=== PATIENT | female | born 1945 | race Caucasian/White ===

== ENCOUNTER 2016-08-07 13:29 | Inpatient (IN) | payer OTHER ==
[~2016-08-07] VITALS: Ht 160 cm; Wt 73.0 kg
[~2016-08-07 13:29] MED LIST: ASPCH81X PO; TIMO1SOL6 OPR
[2016-08-07] MEDS ORDERED: ALBUT/IPRATROP 3MG/0.5MG NEB 3 ML VIAL INH STA (14:29)
[2016-08-07 14:55] LABS: BASO % 0.1 %; BASO ABS # 0.01 K/uL (0-0.2); COMPLETE YES; HEMATOCRIT 42.1 % (37-47); IG% 0.5 %; LYMPH % 7.5 %; LYMPH ABS # 1.13 K/uL (1.2-3.4); MEAN CELL VOLUME 92.9 fL (80-100); MEAN CORPUSCULAR HEMOGLOBIN 31.1 pg (25-34); MEAN CORPUSCULAR HGB CONC 33.5 g/dl (32-36); MEAN PLATELET VOLUME 8.7 fL (7.4-10.4); MONO % 1.4 %; NEUT % 90.5 %; PLATELET COUNT 294 K/uL (130-400); RED BLOOD COUNT 4.53 M/uL (4.2-5.4); WHITE BLOOD COUNT 15.05 K/uL (4.8-10.8)
--- NOTE | 2016-08-07 15:02 | DIAGNOSTIC IMAGING REPORT ---
CHEST ONE VIEW PORTABLE CLINICAL HISTORY: Wheezing, shortness of breath, pneumonia. COMPARISON STUDY: 09/02/2012 FINDINGS: The cardiac and mediastinal contours are normal. There is no evidence of focal pulmonary consolidation. There is no evidence of failure. No pleural effusions are visualized.[ There is minor left basilar atelectasis. IMPRESSION: No active disease in the chest. Electronically signed by: Adrian Johnson M.D. 08/07/2016 3:00 PM Dictated Date/Time: 08/07/2016 3:00 PM
[2016-08-07 15:13] LABS: ALT/SGPT 39 U/L (12-78); BLOOD UREA NITROGEN 21 mg/dl (7-18); BUN/CREATININE RATIO 17.8 (10-20); CALCIUM 9.4 mg/dl (8.5-10.1); CARBON DIOXIDE 24 mmol/L (21-32); CHLORIDE 106 mmol/L (98-107); GLUCOSE 140 mg/dl (70-99); POTASSIUM 3.9 mmol/L (3.5-5.1); SODIUM 142 mmol/L (136-145)
[2016-08-07 15:18] LABS: ALB/GLOB RATIO 0.8 (0.9-2); ALKALINE PHOSPHATASE 40 U/L (45-117); AST/SGOT 18 U/L (15-37)
[2016-08-07 15:24] LABS: PARTIAL THROMBOPLASTIN RATIO 0.9; PROTHROMBIN TIME (PATIENT) 10.6 SECONDS (9.0-12.0)
[2016-08-07] MEDS ORDERED: PRVIN525 PO (15:24)
[2016-08-07] MEDS ORDERED: DOXY-300 PO (15:24)
[2016-08-07] MEDS ORDERED: NLV/20 PO (15:24)
[2016-08-07] MEDS ORDERED: CEPH500C PO (15:24)
[2016-08-07] MEDS ORDERED: PRED20TA2 PO (15:24)
[2016-08-07 15:28] LABS: URINE APPEARANCE CLEAR (CLEAR); URINE BILIRUBIN NEG (NEG); URINE COLOR YELLOW; URINE NITRITE NEG (NEG); URINE SPECIFIC GRAVITY 1.006 (1.000-1.030); UROBILINOGEN NEG (NEG)
[2016-08-07] MEDS ORDERED: OPTIRAY 320 IV PRN (15:30)
[2016-08-07 15:42] LABS: MANUAL MICROSCOPIC REQUIRED? NO; REVIEW REQ? NO
[2016-08-07] MEDS ORDERED: SODIUM CHLORIDE 0.9% 1000ML 1,000 ML IV STA (15:52)
--- NOTE | 2016-08-07 16:22 | DIAGNOSTIC IMAGING REPORT ---
CT ANGIOGRAM OF THE CHEST CLINICAL HISTORY: Left-sided chest pain. Dyspnea. COMPARISON STUDY: Chest x-ray dated 08/07/2016. TECHNIQUE: Following the IV administration of 90 cc of Optiray 320, CT angiogram of the chest was performed from the upper abdomen to the thoracic inlet utilizing the pulmonary embolus protocol. Images are reviewed in the axial, sagittal, and coronal planes. 3-D MIPS images are created and assessed. IV contrast was administered without complication. CT DOSE: 427.66 mGycm FINDINGS: Thyroid: Imaged portions of the thyroid gland are normal in size and attenuation. An 11 mm low-attenuation nodule is noted in the right lobe. Thoracic aorta: The thoracic aorta is normal in caliber and demonstrates standard 3-vessel arch anatomy. No dissection is seen. Pulmonary vasculature: The pulmonary trunk is normal in caliber. There is trace pulmonary embolus seen within segmental and subsegmental branches in the left upper lobe on images #152 and #144. The remaining pulmonary vessels are patent. Heart: The heart is normal in size and configuration, and without pericardial effusion. Lungs and pleural spaces: Evaluation of the lung parenchyma is degraded by expiratory motion artifact. There is a small left pleural effusion with patchy airspace consolidation at the left lung base. Mild patchy airspace opacities with tree-in-bud nodularity are seen in the right upper lobe. Linear atelectasis versus scarring is seen in the right middle lobe and lingula. The trachea and central airways are clear. Mediastinum: There is no mediastinal lymphadenopathy. Shae: Clear. Axillae: There is no axillary lymphadenopathy. Upper abdomen: Cholecystectomy clips are noted. There is a small hiatal hernia. Skeletal structures: The skeletal structures are osteopenic. Mild degenerative change is noted throughout the thoracic spine. No lytic or blastic bony lesions are seen. IMPRESSION: 1. There is trace and age indeterminant pulmonary embolus identified within segmental and subsegmental branches of the left upper lobe pulmonary artery. The remaining pulmonary vessels are clear. 2. There is a small left pleural effusion with patchy airspace consolidation at the left lung base. Mild patchy consolidative change is also seen in the right upper lobe. The appearance suggests pneumonia. Clinical correlation will be required. 3. There is an 11 mm low-attenuation nodule in the right lobe of the thyroid gland. Nonemergent thyroid ultrasound is recommended in follow-up. 4. Additional findings as above. Electronically signed by: King Mendenhall M.D. 08/07/2016 4:21 PM Dictated Date/Time: 08/07/2016 4:09 PM
[2016-08-07] MEDS ORDERED: LEVOFLOXACIN 250 MG TAB PO STA (17:01)
--- NOTE | 2016-08-07 18:02 | DIAGNOSTIC IMAGING REPORT ---
BILATERAL LOWER EXTREMITY VENOUS DOPPLER HISTORY: Chest pain. Pain. Edema. PE, lower extremity eval COMPARISON STUDY: None. FINDINGS: Evaluation of the right leg is normal. Left leg shows a stably positive for acute deep venous thrombosis in the mid to post mid to distal popliteal vein. All remaining venous structures are unremarkable. IMPRESSION: Acute deep venous thrombosis left leg involving the popliteal vein. All remaining components of the study are unremarkable. Electronically signed by: Zaheer Cook M.D. 08/07/2016 6:01 PM Dictated Date/Time: 08/07/2016 5:59 PM
[2016-08-07] MEDS ORDERED: ACETAMINOPHEN 325 MG TAB PO PRN (19:30)
--- NOTE | 2016-08-07 20:27 | History and Physical ---
History & Physical Date & Time of Service: Aug 07, 2016 at 20:27 . Chief Complaint: cough, chest pain . Primary Care Physician: Sharon Morgan M.D. (MEDICAL) . History of Present Illness Source: patient, clinic records, hospital records 71 YO female followed by Dr. Morgan for Family Medicine. Followed by Dr. Manish Rodriguez for Hematology / Oncology. Retired respiratory therapist. History of breast Ca, on tamoxifen. Developed fever, chills, cough about 2 weeks ago. Seen in clinic on 08/01. Chest x-ray showed possible RML infiltrate. Treated with doxycycline and prednisone taper. Persistent cough. Seen in clinic for f/u 08/06 and prescribed cephalexin. Using nebs at home without much benefit. Presented to ED today with severe left sided pleuritic chest pain. Cough improved, now nonproductive. No hemoptysis. Dyspneic. Fever has resolved. Had sclerotherapy of lower extremities for varicose veins about 2 weeks ago. . Past Medical/Surgical History Chronic and Resolved Medical Problems: (1) CKD (chronic kidney disease), stage III Status: Chronic (2) History of breast cancer Permanent Comment: DCIS left breast, treated with tamoxifen Status: Chronic Surgical Problems: (1) S/P total hysterectomy Status: Resolved (2) Status post breast biopsy Permanent Comment: DCIS left breast 2014 Status: Chronic (3) Status post cataract extraction Status: Chronic (4) Status post cholecystectomy Status: Chronic (5) Status post hysterectomy Status: Chronic . Family History FATHER Heart disease MOTHER Pancreatic cancer Breast cancer Social History Smoking Status: Never Smoker Alcohol Use: occasionally Drug Use: none Marital Status: Immunizations History of Influenza Vaccine: No History of Tetanus Vaccine?: Yes History of Pneumococcal: No History of Hepatitis B Vaccine: Yes Multi-Drug Resistant Organisms History of MDRO: No Allergies Coded Allergies: Tramadol (Unverified Allergy, Unknown, UPSET STOMACH/ NAUSEA, 08/07/16) Hydrocodone (Verified Adverse Reaction, Intermediate, SLURRING OF SPEECH, TINGLING ALL OVER, 08/07/16) Home Medications Scheduled Cephalexin Monohydrate (Keflex), 500 MG PO TID Prednisone (Prednisone Tab), 20 MG PO DIRECTED Tamoxifen Citrate (Tamoxifen Citrate), 20 MG PO DAILY Timolol Hemihydrate 0.25% Oph (Betimol 0.25% Oph), 1 DROP OPR DAILY Scheduled PRN Albuterol Sulf (Albuterol Sulfate), 0.5 ML PO Q4 PRN for Shortness of Breath Review of Systems Constitutional: + chills, + fever, + sweats Eyes: No diplopia, No worsening of vision ENT: No hearing loss, No nasal symptoms, No sore throat Respiratory: + problem reported (as noted in HPI) Cardiovascular: No chest pain, No edema, No palpitations Abdomen: + diarrhea (at onset of illness, now resolved), + nausea (at onset of illness, now resolved), + vomiting (at onset of illness, now resolved), No GI bleeding Genitourinary - Female: No dysuria, No hematuria Neurologic: No weakness Endocrine: No excessive thirst, No excessive urination Hematologic / Lymphatic: No abnormal bleeding/bruising, No swollen lymph nodes Integumentary: No new/changing skin lesions, No rash Physical Exam Vital Signs Date Time Temp Pulse Resp B/P Pulse Ox O2 Delivery O2 Flow Rate FiO2 08/07/16 19:29 89 08/07/16 17:58 73 19 155/89 97 Room Air 08/07/16 16:57 74 18 141/85 95 Room Air 08/07/16 15:49 83 18 95 Room Air 08/07/16 15:18 74 08/07/16 14:59 94 Room Air 08/07/16 14:59 94 Room Air 08/07/16 13:38 36.9 94 18 155/81 94 Room Air General Appearance: WD/WN, no apparent distress Head: normocephalic, atraumatic Eyes: normal inspection, PERRL, EOMI, sclerae normal ENT: normal ENT inspection, hearing grossly normal, pharynx normal Neck: supple, no adenopathy, thyroid normal, no JVD, trachea midline Respiratory/Chest: no respiratory distress, + crackles (left base), + wheezing (mild) Cardiovascular: regular rate, rhythm, no gallop, no JVD, no murmur, normal peripheral pulses, + pertinent finding (trace edema LLE) Abdomen/GI: normal bowel sounds, non tender, soft, no organomegaly, no pulsatile mass Extremities/Musculoskelatal: normal inspection, no calf tenderness, normal capillary refill, no pedal edema 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 (PERRL, EOMI, no dysarthria, no facial palsy), no motor/sensory deficits, alert, oriented x 3 Skin: normal color, warm/dry, no rash Lymphatic: no adenopathy Diagnostics Laboratory Results Results Past 24 Hours Test 08/07/16 14:35 08/07/16 14:41 Range/Units White Blood Count 15.05 4.8-10.8 K/uL Red Blood Count 4.53 4.2-5.4 M/uL Hemoglobin 14.1 12.0-16.0 g/dL Hematocrit 42.1 37-47 % Mean Corpuscular Volume 92.9 80-100 fL Mean Corpuscular Hemoglobin 31.1 25-34 pg Mean Corpuscular Hemoglobin Concent 33.5 32-36 g/dl Platelet Count 294 130-400 K/uL Mean Platelet Volume 8.7 7.4-10.4 fL Neutrophils (%) (Auto) 90.5 % Lymphocytes (%) (Auto) 7.5 % Monocytes (%) (Auto) 1.4 % Eosinophils (%) (Auto) 0.0 % Basophils (%) (Auto) 0.1 % Neutrophils # (Auto) 13.62 1.4-6.5 K/uL Lymphocytes # (Auto) 1.13 1.2-3.4 K/uL Monocytes # (Auto) 0.21 0.11-0.59 K/uL Eosinophils # (Auto) 0.00 0-0.5 K/uL Basophils # (Auto) 0.01 0-0.2 K/uL RDW Standard Deviation 44.0 36.4-46.3 fL RDW Coefficient of Variation 12.8 11.5-14.5 % Immature Granulocyte % (Auto) 0.5 % Immature Granulocyte # (Auto) 0.08 0.00-0.02 K/uL Prothrombin Time 10.6 9.0-12.0 SECONDS Prothromb Time International Ratio 1.0 0.9-1.1 Activated Partial Thromboplast Time 22.4 21.0-31.0 SECONDS Partial Thromboplastin Ratio 0.9 Urine Color YELLOW Urine Appearance CLEAR CLEAR Urine pH 6.0 4.5-7.5 Urine Specific [place] 1.006 1.000-1.030 Urine Protein NEG NEG Urine Glucose (UA) NEG NEG Urine Ketones NEG NEG Urine Occult Blood TRACE NEG Urine Nitrite NEG NEG Urine Bilirubin NEG NEG Urine Urobilinogen NEG NEG Urine Leukocyte Esterase NEG NEG Urine WBC (Auto) 0 0-5 /hpf Urine RBC (Auto) 0-4 0-4 /hpf Urine Hyaline Casts (Auto) 0 0-5 /lpf Urine Epithelial Cells (Auto) 5-10 0-5 /lpf Urine Bacteria (Auto) NEG NEG Sodium Level 142 136-145 mmol/L Potassium Level 3.9 3.5-5.1 mmol/L Chloride Level 106 98-107 mmol/L Carbon Dioxide Level 24 21-32 mmol/L Anion Gap 12.0 3-11 mmol/L Blood Urea Nitrogen 21 7-18 mg/dl Creatinine 1.20 0.60-1.20 mg/dl Est Creatinine Clear Calc Drug Dose 42.3 ml/min Estimated GFR () 53.4 Estimated GFR (Non- 46.1 BUN/Creatinine Ratio 17.8 10-20 Random Glucose 140 70-99 mg/dl Calcium Level 9.4 8.5-10.1 mg/dl Total Bilirubin 0.3 0.2-1 mg/dl Aspartate Amino Transf (AST/SGOT) 18 15-37 U/L Alanine Aminotransferase (ALT/SGPT) 39 12-78 U/L Alkaline Phosphatase 40 45-117 U/L Troponin I < 0.015 0-0.045 ng/ml Pro-B-Type Natriuretic Peptide 119 0-900 pg/ml Total Protein 8.2 6.4-8.2 gm/dl Albumin 3.7 3.4-5.0 gm/dl Globulin 4.5 2.5-4.0 gm/dl Albumin/Globulin Ratio 0.8 0.9-2 Bedside D-Dimer > 450 0-450 ng/mlFEU Diagnostic Radiology CHEST ONE VIEW PORTABLE FINDINGS: The cardiac and mediastinal contours are normal. There is no evidence of focal pulmonary consolidation. There is no evidence of failure. No pleural effusions are visualized.[ There is minor left basilar atelectasis. IMPRESSION: No active disease in the chest. Electronically signed by: Adrian Johnson M.D. 08/07/2016 3:[address] ANGIOGRAM OF THE CHEST FINDINGS: Thyroid: Imaged portions of the thyroid gland are normal in size and attenuation. An 11 mm low-attenuation nodule is noted in the right lobe. Thoracic aorta: The thoracic aorta is normal in caliber and demonstrates standard 3-vessel arch anatomy. No dissection is seen. Pulmonary vasculature: The pulmonary trunk is normal in caliber. There is trace pulmonary embolus seen within segmental and subsegmental branches in the left upper lobe on images #152 and #144. The remaining pulmonary vessels are patent. Heart: The heart is normal in size and configuration, and without pericardial effusion. Lungs and pleural spaces: Evaluation of the lung parenchyma is degraded by expiratory motion artifact. There is a small left pleural effusion with patchy airspace consolidation at the left lung base. Mild patchy airspace opacities with tree-in-bud nodularity are seen in the right upper lobe. Linear atelectasis versus scarring is seen in the right middle lobe and lingula. The trachea and central airways are clear. Mediastinum: There is no mediastinal lymphadenopathy. Shae: Clear. Axillae: There is no axillary lymphadenopathy. Upper abdomen: Cholecystectomy clips are noted. There is a small hiatal hernia. Skeletal structures: The skeletal structures are osteopenic. Mild degenerative change is noted throughout the thoracic spine. No lytic or blastic bony lesions are seen. IMPRESSION: 1. There is trace and age indeterminant pulmonary embolus identified within segmental and subsegmental branches of the left upper lobe pulmonary artery. The remaining pulmonary vessels are clear. 2. There is a small left pleural effusion with patchy airspace consolidation at the left lung base. Mild patchy consolidative change is also seen in the right upper lobe. The appearance suggests pneumonia. Clinical correlation will be required. 3. There is an 11 mm low-attenuation nodule in the right lobe of the thyroid gland. Nonemergent thyroid ultrasound is recommended in follow-up. 4. Additional findings as above. Electronically signed by: King Mendenhall M.D. 08/07/2016 4:21 PM BILATERAL LOWER EXTREMITY VENOUS DOPPLER IMPRESSION: Acute deep venous thrombosis left leg involving the popliteal vein. All remaining components of the study are unremarkable. Electronically signed by: Zaheer Cook M.D. 08/07/2016 6:01 PM . EKG EKG performed at 14:26 reviewed and demonstrated NSR at 85 / minute, no acute ST or T-wave changes. . Impression Assessment and Plan PULMONARY EMBOLISM / DVT CTA demonstrated segmental and subsegmental pulmonary emboli. Oxygenation and hemodynamics stable. Venous duplex lower extremities demonstrated left popliteal DVT. Contributing factors: tamoxifen therapy, recent sclerotherapy lower extremities , recent pneumonia. Start enoxaparin 1 mg / kg q 12 hrs. Transition to oral therapy after more discussion and review of benefits. Patient prefers not to take warfarin. Hold tamoxifen pending discussion with Hematology / Oncology. Duration of treatment to be determined. PNEUMONIA CT demonstrates infiltrates LLL and RUL. Has taken doxycycline and cephalexin as outpatient. Change Rx to levofloxacin. THYROID NODULE 11 mm right thyroid nodule noted on CT chest. Outpatient US recommended. Patient aware. BREAST CA Management per Heme / Onc. VTE PROPHYLAXIS Full-dose enoxaparin as discussed above. RESUSCITATION STATUS Discussed with patient. She has a living will. She would like resuscitation attempted in the event of a cardiopulmonary arrest if there is a reasonable chance of a meaningful recovery, but does not want prolonged extraordinary measures if prognosis is poor. Therefore, code status = "Level 1" (full resuscitation). DISPOSITION Hemodynamically stable. Admit to Med-Surg Unit. Expected discharge to home. Family Medicine follow-up with Dr. Morgan. Hematology / Oncology follow-up with Dr. Manish Rodriguez. . VTE Prophylaxis VTE Risk Assessment Done? Y/N: Yes Risk Level: High Given or contraindicated: Enoxaparin (Lovenox)SQ Additional Copies To Sharon Morgan M.D. (MEDICAL); Manish Rodriguez M.D.
[2016-08-07] MEDS ORDERED: GUAIFENESIN SUGAR FREE 100 MG/5 ML UDC PO PRN (20:30)
[2016-08-07] MEDS ORDERED: ENOXAPARIN 80 MG/0.8 ML SYR SQ SCH (21:00)
--- NOTE | 2016-08-07 21:07 | EMERGENCY ROOM VISIT NOTE ---
History Report prepared by [place]: Kia Corbett Under the Supervision of: Dr. Guillermo Mccormack D.O. First contact with patient: 14:19 Chief Complaint: SHORTNESS OF BREATH Stated Complaint: WHEEZING, SOB, PNEMONIA Nursing Triage Summary: pt here with increased sob, pt states recent dx of pneumonia from dr del cid pt on abx History of Present Illness The patient is a 71 year old female who presents to the Emergency Room with complaints of persistent shortness of breath starting 2 weeks ago. She saw a doctor 1 week ago who gave her doxycycline and prednisone for pneumonia. She has been doing nebulizer treatments also. She expected to get better, but has not experienced any improvements. She is wheezing and has a cough producing green sputum. She was given another antibiotic by her doctor yesterday and was told to present to the ED if she did not experience any improvement. She was told she might have community based pneumonia. She denies any history of blood clots or [place]. She has been on Tamoxifen for 2 years to prevent breast cancer. Source of History: patient Onset: 2 weeks ago Position: other (global) Quality: other (SOB) Timing: other (persistent) Associated Symptoms: + cough Note: Pt reports wheezing. Review of Systems See HPI for pertinent positives & negatives. A total of 10 systems reviewed and were otherwise negative. Past Medical & Surgical Surgical Problems: (1) S/P total hysterectomy Family History FH: breast cancer Social History Smoking Status: Never Smoker Alcohol Use: occasionally Drug Use: none Marital Status: Housing Status: lives with family Occupation Status: employed Current/Historical Medications Scheduled Cephalexin Monohydrate (Keflex), 500 MG PO TID Doxycycline (Monohydrate) (Doxycycline), 100 MG PO BID Prednisone (Prednisone Tab), 20 MG PO DIRECTED Tamoxifen Citrate (Tamoxifen Citrate), 20 MG PO DAILY Timolol Hemihydrate 0.25% Oph (Betimol 0.25% Oph), 1 DROP OPR DAILY Scheduled PRN Albuterol Sulf (Albuterol Sulfate), 0.5 ML PO Q4 PRN for Shortness of Breath Allergies Coded Allergies: Tramadol (Unverified Allergy, Unknown, UPSET STOMACH/ NAUSEA, 08/07/16) Hydrocodone (Verified Adverse Reaction, Intermediate, SLURRING OF SPEECH, TINGLING ALL OVER, 08/07/16) Physical Exam Vital Signs Date Time Temp Pulse Resp B/P Pulse Ox O2 Delivery O2 Flow Rate FiO2 08/07/16 19:29 89 08/07/16 17:58 73 19 155/89 97 Room Air 08/07/16 16:57 74 18 141/85 95 Room Air 08/07/16 15:49 83 18 95 Room Air 08/07/16 15:18 74 08/07/16 14:59 94 Room Air 08/07/16 14:59 94 Room Air 08/07/16 13:38 36.9 94 18 155/81 94 Room Air Physical Exam GENERAL: Patient is awake, alert, and in no acute distress. Patient is resting comfortably and showing no signs of anxiety EYES: The conjunctivae are clear. The pupils are round and reactive. EARS, NOSE, MOUTH AND THROAT: The nose is without any evidence of any deformity. Mucous membranes are moist tongue is midline NECK: The neck is nontender and supple. RESPIRATORY: Lung sounds diminished throughout. Expiratory wheezing in all lung meeks. No tachypnea or conversational dyspnea noted. CARDIOVASCULAR: Regular rate and rhythm noted there no murmurs rubs or gallops normal S1 normal S2 GASTROINTESTINAL: The abdomen is soft. Bowel sounds are present in all quadrants. Abdomen is nontender MUSCULOSKELETAL/EXTREMITIES: There is no evidence of gross deformity full range of motion is noted in the hips and shoulders SKIN: There is no obvious evidence of any rash. There are no petechiae, pallor or cyanosis noted. NEUROLOGIC: Patient is awake alert and oriented x3 Medical Decision & Procedures ER Provider Diagnostic Interpretation: X-ray results as stated below per interpretation by me and the radiologist. Radiology results as stated below per my review and radiologist interpretation: CHEST ONE VIEW PORTABLE CLINICAL HISTORY: Wheezing, shortness of breath, pneumonia. COMPARISON STUDY: 09/02/2012 FINDINGS: The cardiac and mediastinal contours are normal. There is no evidence of focal pulmonary consolidation. There is no evidence of failure. No pleural effusions are visualized.[ There is minor left basilar atelectasis. IMPRESSION: No active disease in the chest. Electronically signed by: Adrian Johnson M.D. 08/07/2016 3:00 PM Dictated Date/Time: 08/07/2016 3:[address] ANGIOGRAM OF THE CHEST CLINICAL HISTORY: Left-sided chest pain. Dyspnea. COMPARISON STUDY: Chest x-ray dated 08/07/2016. TECHNIQUE: Following the IV administration of 90 cc of Optiray 320, CT angiogram of the chest was performed from the upper abdomen to the thoracic inlet utilizing the pulmonary embolus protocol. Images are reviewed in the axial, sagittal, and coronal planes. 3-D MIPS images are created and assessed. IV contrast was administered without complication. CT DOSE: 427.66 mGycm FINDINGS: Thyroid: Imaged portions of the thyroid gland are normal in size and attenuation. An 11 mm low-attenuation nodule is noted in the right lobe. Thoracic aorta: The thoracic aorta is normal in caliber and demonstrates standard 3-vessel arch anatomy. No dissection is seen. Pulmonary vasculature: The pulmonary trunk is normal in caliber. There is trace pulmonary embolus seen within segmental and subsegmental branches in the left upper lobe on images #152 and #144. The remaining pulmonary vessels are patent. Heart: The heart is normal in size and configuration, and without pericardial effusion. Lungs and pleural spaces: Evaluation of the lung parenchyma is degraded by expiratory motion artifact. There is a small left pleural effusion with patchy airspace consolidation at the left lung base. Mild patchy airspace opacities with tree-in-bud nodularity are seen in the right upper lobe. Linear atelectasis versus scarring is seen in the right middle lobe and lingula. The trachea and central airways are clear. Mediastinum: There is no mediastinal lymphadenopathy. Shae: Clear. Axillae: There is no axillary lymphadenopathy. Upper abdomen: Cholecystectomy clips are noted. There is a small hiatal hernia. Skeletal structures: The skeletal structures are osteopenic. Mild degenerative change is noted throughout the thoracic spine. No lytic or blastic bony lesions are seen. IMPRESSION: 1. There is trace and age indeterminant pulmonary embolus identified within segmental and subsegmental branches of the left upper lobe pulmonary artery. The remaining pulmonary vessels are clear. 2. There is a small left pleural effusion with patchy airspace consolidation at the left lung base. Mild patchy consolidative change is also seen in the right upper lobe. The appearance suggests pneumonia. Clinical correlation will be required. 3. There is an 11 mm low-attenuation nodule in the right lobe of the thyroid gland. Nonemergent thyroid ultrasound is recommended in follow-up. 4. Additional findings as above. Electronically signed by: King Mendenhall M.D. 08/07/2016 4:21 PM Dictated Date/Time: 08/07/2016 4:09 PM BILATERAL LOWER EXTREMITY VENOUS DOPPLER HISTORY: Chest pain. Pain. Edema. PE, lower extremity eval COMPARISON STUDY: None. FINDINGS: Evaluation of the right leg is normal. Left leg shows a stably positive for acute deep venous thrombosis in the mid to post mid to distal popliteal vein. All remaining venous structures are unremarkable. IMPRESSION: Acute deep venous thrombosis left leg involving the popliteal vein. All remaining components of the study are unremarkable. Electronically signed by: Zaheer Cook M.D. 08/07/2016 6:01 PM Dictated Date/Time: 08/07/2016 5:59 PM Laboratory Results 08/07/16 14:35 Red Blood Count 4.53, Mean Corpuscular Volume 92.9, Mean Corpuscular Hemoglobin 31.1, Mean Corpuscular Hemoglobin Concent 33.5, Mean Platelet Volume 8.7, Neutrophils (%) (Auto) 90.5, Lymphocytes (%) (Auto) 7.5, Monocytes (%) (Auto) 1.4, Eosinophils (%) (Auto) 0.0, Basophils (%) (Auto) 0.1, Neutrophils # (Auto) 13.62, Lymphocytes # (Auto) 1.13, Monocytes # (Auto) 0.21, Eosinophils # (Auto) 0.00, Basophils # (Auto) 0.01 08/07/16 14:35 Test 08/07/16 14:35 08/07/16 14:41 White Blood Count 15.05 K/uL (4.8-10.8) Red Blood Count 4.53 M/uL (4.2-5.4) Hemoglobin 14.1 g/dL (12.0-16.0) Hematocrit 42.1 % (37-47) Mean Corpuscular Volume 92.9 fL (80-100) Mean Corpuscular Hemoglobin 31.1 pg (25-34) Mean Corpuscular Hemoglobin Concent 33.5 g/dl (32-36) Platelet Count 294 K/uL (130-400) Mean Platelet Volume 8.7 fL (7.4-10.4) Neutrophils (%) (Auto) 90.5 % Lymphocytes (%) (Auto) 7.5 % Monocytes (%) (Auto) 1.4 % Eosinophils (%) (Auto) 0.0 % Basophils (%) (Auto) 0.1 % Neutrophils # (Auto) 13.62 K/uL (1.4-6.5) Lymphocytes # (Auto) 1.13 K/uL (1.2-3.4) Monocytes # (Auto) 0.21 K/uL (0.11-0.59) Eosinophils # (Auto) 0.00 K/uL (0-0.5) Basophils # (Auto) 0.01 K/uL (0-0.2) RDW Standard Deviation 44.0 fL (36.4-46.3) RDW Coefficient of Variation 12.8 % (11.5-14.5) Immature Granulocyte % (Auto) 0.5 % Immature Granulocyte # (Auto) 0.08 K/uL (0.00-0.02) Prothrombin Time 10.6 SECONDS (9.0-12.0) Prothromb Time International Ratio 1.0 (0.9-1.1) Activated Partial Thromboplast Time 22.4 SECONDS (21.0-31.0) Partial Thromboplastin Ratio 0.9 Urine Color YELLOW Urine Appearance CLEAR (CLEAR) Urine pH 6.0 (4.5-7.5) Urine Specific [place] 1.006 (1.000-1.030) Urine Protein NEG (NEG) Urine Glucose (UA) NEG (NEG) Urine Ketones NEG (NEG) Urine Occult Blood TRACE (NEG) Urine Nitrite NEG (NEG) Urine Bilirubin NEG (NEG) Urine Urobilinogen NEG (NEG) Urine Leukocyte Esterase NEG (NEG) Urine WBC (Auto) 0 /hpf (0-5) Urine RBC (Auto) 0-4 /hpf (0-4) Urine Hyaline Casts (Auto) 0 /lpf (0-5) Urine Epithelial Cells (Auto) 5-10 /lpf (0-5) Urine Bacteria (Auto) NEG (NEG) Anion Gap 12.0 mmol/L (3-11) Est Creatinine Clear Calc Drug Dose 42.3 ml/min Estimated GFR () 53.4 Estimated GFR (Non- 46.1 BUN/Creatinine Ratio 17.8 (10-20) Calcium Level 9.4 mg/dl (8.5-10.1) Total Bilirubin 0.3 mg/dl (0.2-1) Aspartate Amino Transf (AST/SGOT) 18 U/L (15-37) Alanine Aminotransferase (ALT/SGPT) 39 U/L (12-78) Alkaline Phosphatase 40 U/L (45-117) Troponin I < 0.015 ng/ml (0-0.045) Pro-B-Type Natriuretic Peptide 119 pg/ml (0-900) Total Protein 8.2 gm/dl (6.4-8.2) Albumin 3.7 gm/dl (3.4-5.0) Globulin 4.5 gm/dl (2.5-4.0) Albumin/Globulin Ratio 0.8 (0.9-2) Bedside D-Dimer > 450 ng/mlFEU (0-450) Laboratory results per my review. Medications Administered Medications (Trade) Dose Ordered Sig/Kirk Route Start Time Stop Time Status Last Admin Dose Admin Albuterol/ Ipratropium 3 ml 3 ml NOW STAT INH 08/07/16 14:29 08/07/16 14:30 DC 08/07/16 14:59 3 ML Sodium Chloride (Nss 1000ml) 1,000 ml @ 999 mls/hr Q1H1M STAT IV 08/07/16 15:52 08/07/16 16:52 DC 08/07/16 16:48 999 MLS/HR Levofloxacin (Levaquin Tab) 750 mg NOW STAT PO 08/07/16 17:01 08/07/16 17:02 DC 08/07/16 17:56 750 MG ECG Indication: SOB/dyspnea Rate (beats per minute): 85 Rhythm: normal sinus Findings: ST depression (inferior and lateral), no ectopy, other (poor baseline noted) Comparison ECG Date: 09/02/2012 Change: no significant change ED Course 1425: The patient was evaluated in room B5. A complete history and physical examination were performed. 1429: Duoneb 3 ml INH. 1510: I reevaluated the patient. She is resting comfortably. 1552: NSS 1000 ml @ 999 mls/hr IV. 1701: Levofloxacin 750 mg PO. 1847: I discussed the patient's case with Dr. Elder, [facility] - hospitalist. She will be evaluated for further management. 1850: Upon reevaluation, the patient is resting comfortably. I discussed results and treatment plan with her. She verbalizes agreement and understanding. The patient will be evaluated for further management and care. Medical Decision Prior records/ancillary studies reviewed. Triage Nursing notes reviewed. Additional history obtained from the family. The patient's history was concerning for respiratory difficulties. Differential diagnosis: Etiologies such as infections, reactive airway disease, pneumonia, pneumothorax , COPD, CHF, cardiac ischemia, pulmonary embolism, musculoskeletal, gastrointestinal, as well as others were entertained. The patient is a 71-year-old female who presented to the emergency department for an evaluation of shortness of breath. The patient started having symptoms approximately 2 weeks ago. Symptoms include cough and low-grade fever. The patient was felt to have bronchitis or possibly pneumonia. She was started on antibiotics after chest x-ray showed signs of pulmonary infiltrate. She had the antibiotic switched recently and continues to take a second antibiotic. She presented to the emergency apartment today because of ongoing symptoms. The patient had a recent procedure on her left leg but did not have significant swelling or calf tenderness. The patient's d-dimer was elevated. CT the chest did reveal signs of a subsegmental pulmonary embolism which was age indeterminate. The patient also had signs of pneumonia on chest x-ray. She also had signs of pneumonia on chest CT. For this reason ultrasound the lower extremities was obtained to evaluate for further venous thromboembolic disease. Ultrasound did show signs of an acute DVT. The patient was not hypotensive. She did not have signs of a massive pulmonary embolism based on vital signs. I discussed his case with the on-call [facility] hospitalist group. The patient was treated with a different antibiotic for the pneumonia. I will defer anticoagulation choice to the admitting team. The patient was reevaluated multiple times. I discussed the patient's laboratory and radiographic studies with her. Consults Time Called: 1839 Consulting Physician: Dr. Elder, [facility] - [facility] hospitalist Returned Call: [phone] I discussed the patient's case with him. The patient will be evaluated for further management. Impression Primary Impression: Pulmonary embolism Additional Impressions: Acute deep vein thrombosis (DVT) of left lower extremity Pneumonia Scribe Attestation The scribe's documentation has been prepared under my direction and personally reviewed by me in its entirety. I confirm that the note above accurately reflects all work, treatment, procedures, and medical decision making performed by me. Departure Information Dispostion Being Evaluated By Hospitalist Referrals Conchis Guerrero MD (PCP) Patient Instructions My [facility] Problem Qualifiers Primary Impression: Pulmonary embolism Pulmonary embolism type: other Chronicity: unspecified Acute cor pulmonale presence: without acute cor pulmonale Qualified Codes: I26.99 - Other pulmonary embolism without acute cor pulmonale Additional Impressions: Acute deep vein thrombosis (DVT) of left lower extremity Affected thrombotic vein of extremity: unspecified lower extremity distal vein Qualified Codes: I82.4Z2 - Acute embolism and thrombosis of unspecified deep veins of left distal lower extremity Pneumonia Pneumonia type: due to unspecified organism Laterality: left Lung location : lower lobe of lung Qualified Codes: J18.1 - Lobar pneumonia, unspecified organism
[2016-08-07] MEDS ORDERED: METHYLPREDNISOLONE IV 40 MG in SYRINGE 0 ML IV STA (21:24)
[2016-08-07] MEDS ORDERED: HYDROmorphone INJ 0.5 MG/0.5 ML SYR IV ONE (21:32)
[2016-08-07] MEDS ORDERED: HYDROmorphone INJ 0.5 MG/0.5 ML SYR IV PRN (21:45)
[2016-08-07] MEDS: ENOXAPARIN 80 MG/0.8 ML SYR SQ SCH (22:00)
[2016-08-07 23:32] VITALS: BP 134/74; PULSE 71; TEMP 36.6; O2SAT 92
[2016-08-07] MEDS: ZOLPIDEM TARTRATE 5 MG TAB PO PRN (23:39)
[2016-08-08] VITALS (9 sets, daily range): BP systolic 134–140; BP diastolic 74–90; PULSE 67–89; TEMP 36.6–37.1; O2SAT 92–95; Ht 160 cm; Wt 73.0 kg
[2016-08-08] MEDS: ALBUT/IPRATROP 3MG/0.5MG NEB 3 ML VIAL INH SCH ×4 (07:57→20:55)
[2016-08-08] MEDS ORDERED: METHYLPREDNISOLONE IV 40 MG in SYRINGE 0 ML IV SCH (09:00)
[2016-08-08] MEDS: ENOXAPARIN 80 MG/0.8 ML SYR SQ SCH ×2 (09:27→21:20)
--- NOTE | 2016-08-08 10:05 | Progress Note ---
Internal Med Progress Note Date of Service: Aug 08, 2016. Provider Documentation: SUBJECTIVE: Patient's left pleuritic pain is marginally better today. Cough has improved, no sputum production Still has SOB same as on presentation. No leg edema, pain. No fever, chills, nausea, vomiting, abdominal pain, diarrhea. Not on oxygen. OBJECTIVE : Vital Signs-as noted below Exam: General-AAOX3, no distress Neck-Supple, No JVD Lungs-AEBE decreased, few rhonchi /crackles b/l, no wheezing Heart-S1, S2 normal, no murmurs Abdomen-Soft, non tender, non distended, BS present Extremities-LLE- Ochoa hose + Post sclerotherapy for varicose veins, RLL- No edema Lab data as noted below. CT CHEST: IMPRESSION: 1. There is trace and age indeterminant pulmonary embolus identified within segmental and subsegmental branches of the left upper lobe pulmonary artery. The remaining pulmonary vessels are clear. 2. There is a small left pleural effusion with patchy airspace consolidation at the left lung base. Mild patchy consolidative change is also seen in the right upper lobe. The appearance suggests pneumonia. Clinical correlation will be required. 3. There is an 11 mm low-attenuation nodule in the right lobe of the thyroid gland. Nonemergent thyroid ultrasound is recommended in follow-up. 4. Additional findings as above. VENOUS DUPLEX Left popliteal vein thrombosis ASSESSMENT & PLAN: SOB/LEFT PLEURITIC PAIN Multifactorial: Pneumonia (Bilateral/Community acquired) / Pulmonary embolism -Not hypoxic PNEUMONIA (B/L/Community acquired) Failed outpatient Rx with Doxycycline (5 days) --> Cefalexin and prednisone x 5 days -Afebrile, Leucocytosis -IV Levofloxacin (Day 1) PULMONARY EMBOLISM, LEFT SIDED/ ACUTE DVT - LEFT POPLITEAL VEIN CT scan - Segmental and subsegmental branches of the left upper lobe pulmonary artery. Venous duplex- Left popliteal vein thrombosis Risk factors: Tamoxifen with hx of breast cancer, in remission. Sclerotherapy can rarely cause DVT , so most likely Tamoxifen is the culprit. -Lovenox SQ BID started on admission -Discussed with Dr Manish Rodriguez over phone - Recommends discontinuation of Tamoxifen and Xarelto for Rx. No indication of terminal block assembler lovenox as cancer is not active. Gave options of Coumadin/Xarelto to patient. Does not want coumadin due to need for frequent INR testing. Explained risks of Xarelto- bleeding risk and no antidote available. Understands and wants to go with Xarelto HX OF BREAST CARCINOMA -In remission -Tamoxifen- discontinue due to new PE -Discussed case with Dr Manish Rodriguez -Follow up in 1-2 weeks DISPOSITION Medical mx in progress Expected discharge home when stable SS for checking insurance coverage for xarelto Vital Signs: Date Time Temp Pulse Resp B/P Pulse Ox O2 Delivery O2 Flow Rate FiO2 08/08/16 09:38 92 Room Air 08/08/16 07:57 79 18 95 Room Air 08/08/16 07:30 37.0 67 20 139/90 92 Room Air 08/08/16 00:06 36.6 71 18 134/74 Room Air 08/07/16 23:32 36.6 71 18 134/74 92 Room Air 08/07/16 19:29 89 08/07/16 17:58 73 19 155/89 97 Room Air 08/07/16 16:57 74 18 141/85 95 Room Air 08/07/16 15:49 83 18 95 Room Air 08/07/16 15:18 74 08/07/16 14:59 94 Room Air 08/07/16 14:59 94 Room Air 08/07/16 13:38 36.9 94 18 155/81 94 Room Air Lab Results: Results Past 24 Hours Test 08/07/16 14:35 08/07/16 14:41 Range/Units White Blood Count 15.05 4.8-10.8 K/uL Red Blood Count 4.53 4.2-5.4 M/uL Hemoglobin 14.1 12.0-16.0 g/dL Hematocrit 42.1 37-47 % Mean Corpuscular Volume 92.9 80-100 fL Mean Corpuscular Hemoglobin 31.1 25-34 pg Mean Corpuscular Hemoglobin Concent 33.5 32-36 g/dl Platelet Count 294 130-400 K/uL Mean Platelet Volume 8.7 7.4-10.4 fL Neutrophils (%) (Auto) 90.5 % Lymphocytes (%) (Auto) 7.5 % Monocytes (%) (Auto) 1.4 % Eosinophils (%) (Auto) 0.0 % Basophils (%) (Auto) 0.1 % Neutrophils # (Auto) 13.62 1.4-6.5 K/uL Lymphocytes # (Auto) 1.13 1.2-3.4 K/uL Monocytes # (Auto) 0.21 0.11-0.59 K/uL Eosinophils # (Auto) 0.00 0-0.5 K/uL Basophils # (Auto) 0.01 0-0.2 K/uL RDW Standard Deviation 44.0 36.4-46.3 fL RDW Coefficient of Variation 12.8 11.5-14.5 % Immature Granulocyte % (Auto) 0.5 % Immature Granulocyte # (Auto) 0.08 0.00-0.02 K/uL Prothrombin Time 10.6 9.0-12.0 SECONDS Prothromb Time International Ratio 1.0 0.9-1.1 Activated Partial Thromboplast Time 22.4 21.0-31.0 SECONDS Partial Thromboplastin Ratio 0.9 Urine Color YELLOW Urine Appearance CLEAR CLEAR Urine pH 6.0 4.5-7.5 Urine Specific [place] 1.006 1.000-1.030 Urine Protein NEG NEG Urine Glucose (UA) NEG NEG Urine Ketones NEG NEG Urine Occult Blood TRACE NEG Urine Nitrite NEG NEG Urine Bilirubin NEG NEG Urine Urobilinogen NEG NEG Urine Leukocyte Esterase NEG NEG Urine WBC (Auto) 0 0-5 /hpf Urine RBC (Auto) 0-4 0-4 /hpf Urine Hyaline Casts (Auto) 0 0-5 /lpf Urine Epithelial Cells (Auto) 5-10 0-5 /lpf Urine Bacteria (Auto) NEG NEG Sodium Level 142 136-145 mmol/L Potassium Level 3.9 3.5-5.1 mmol/L Chloride Level 106 98-107 mmol/L Carbon Dioxide Level 24 21-32 mmol/L Anion Gap 12.0 3-11 mmol/L Blood Urea Nitrogen 21 7-18 mg/dl Creatinine 1.20 0.60-1.20 mg/dl Est Creatinine Clear Calc Drug Dose 42.3 ml/min Estimated GFR () 53.4 Estimated GFR (Non- 46.1 BUN/Creatinine Ratio 17.8 10-20 Random Glucose 140 70-99 mg/dl Calcium Level 9.4 8.5-10.1 mg/dl Total Bilirubin 0.3 0.2-1 mg/dl Aspartate Amino Transf (AST/SGOT) 18 15-37 U/L Alanine Aminotransferase (ALT/SGPT) 39 12-78 U/L Alkaline Phosphatase 40 45-117 U/L Troponin I < 0.015 0-0.045 ng/ml Pro-B-Type Natriuretic Peptide 119 0-900 pg/ml Total Protein 8.2 6.4-8.2 gm/dl Albumin 3.7 3.4-5.0 gm/dl Globulin 4.5 2.5-4.0 gm/dl Albumin/Globulin Ratio 0.8 0.9-2 Bedside D-Dimer > 450 0-450 ng/mlFEU
[2016-08-08] MEDS: LEVOFLOXACIN 750 MG TAB PO SCH (17:16)
[2016-08-08] MEDS: ZOLPIDEM TARTRATE 5 MG TAB PO PRN (21:20)
[2016-08-09] VITALS (7 sets, daily range): BP systolic 100–106; BP diastolic 61–70; PULSE 71–84; TEMP 36.3–36.8; O2SAT 91–98
[2016-08-09] MEDS: ALBUT/IPRATROP 3MG/0.5MG NEB 3 ML VIAL INH SCH (07:10)
[2016-08-09] MEDS: ENOXAPARIN 80 MG/0.8 ML SYR SQ SCH (07:36)
--- NOTE | 2016-08-09 09:43 | Progress Note ---
Internal Med Progress Note Date of Service: Aug 09, 2016. Provider Documentation: SUBJECTIVE: Patient is feeling much better today. Left pleuritic pain has improved, relieved after tylenol. Cough has improved, no sputum production. SOB has almost resolved. No leg edema, pain. No fever, chills, nausea, vomiting, abdominal pain, diarrhea. Not on oxygen. OBJECTIVE : Vital Signs-as noted below Exam: General-AAOX3, no distress Neck-Supple, No JVD Lungs-AEBE decreased, Few rhonchi /crackles b/l, no wheezing Heart-S1, S2 normal, no murmurs Abdomen-Soft, non tender, non distended, BS present Extremities-LLE- Ochoa hose + Post sclerotherapy for varicose veins, RLL- No edema Lab data as noted below. CT CHEST: IMPRESSION: 1. There is trace and age indeterminant pulmonary embolus identified within segmental and subsegmental branches of the left upper lobe pulmonary artery. The remaining pulmonary vessels are clear. 2. There is a small left pleural effusion with patchy airspace consolidation at the left lung base. Mild patchy consolidative change is also seen in the right upper lobe. The appearance suggests pneumonia. Clinical correlation will be required. 3. There is an 11 mm low-attenuation nodule in the right lobe of the thyroid gland. Nonemergent thyroid ultrasound is recommended in follow-up. 4. Additional findings as above. VENOUS DUPLEX Left popliteal vein thrombosis ASSESSMENT & PLAN: SOB/LEFT PLEURITIC PAIN: Improved Multifactorial: Pneumonia (Bilateral/Community acquired) / Left Pulmonary embolism -Not hypoxic PNEUMONIA (B/L/Community acquired) - Clinically improving Failed outpatient Rx with Doxycycline (5 days) --> Cefalexin and prednisone x 5 days -Afebrile, Leucocytosis -IV Levofloxacin (Day 2)--> Okay to change to PO Levofloxacin to complete 7 days of rx. PULMONARY EMBOLISM, LEFT SIDED/ ACUTE DVT - LEFT POPLITEAL VEIN CT scan - Segmental and subsegmental branches of the left upper lobe pulmonary artery. Venous duplex- Left popliteal vein thrombosis Risk factors: Tamoxifen with hx of breast cancer, in remission. Sclerotherapy can rarely cause DVT , so most likely Tamoxifen is the culprit. -Lovenox SQ BID started on admission---> Transition to Xarelto today. First dose at 6 PM prior to discharge -Discussed with Dr Manish Rodriguez over phone - Recommends discontinuation of Tamoxifen and Xarelto for Rx. 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 Gave options of Coumadin/Xarelto to patient. Does not want coumadin due to need for frequent INR testing. Explained risks of Xarelto- bleeding risk and no antidote available. Understands and wants to go with Xarelto. Covered by insurance with copay of $ 33-acceptable to patient HX OF BREAST CARCINOMA -In remission -Tamoxifen- discontinue due to new PE/DVT -Discussed case with Dr Manish Rodriguez -Follow up in 1-2 weeks DISPOSITION Ok to discharge home today after first dose of xarelto at 6:00 PM Vital Signs: Date Time Temp Pulse Resp B/P Pulse Ox O2 Delivery O2 Flow Rate FiO2 08/09/16 08:08 36.5 71 16 106/65 91 08/09/16 08:00 95 Room Air 08/09/16 07:17 84 18 95 Room Air 08/09/16 07:11 84 18 95 Room Air 08/09/16 00:19 36.8 77 18 100/61 93 Room Air 08/09/16 00:00 Room Air 08/08/16 20:55 81 18 95 Room Air 08/08/16 20:00 Room Air 08/08/16 16:00 Room Air 08/08/16 15:20 89 18 95 Room Air 08/08/16 15:00 37.1 75 24 140/82 94 Room Air 08/08/16 11:30 84 18 95 Room Air 08/08/16 10:05 Room Air Lab Results: Microbiology Results 08/08/16 Gram Stain - Final, Resulted 08/08/16 Sputum Culture, Resulted Pending
[2016-08-09] MEDS ORDERED: XRL15 PO (09:47)
[2016-08-09] MEDS ORDERED: LVQ750 PO (09:47)
[2016-08-09] MEDS ORDERED: RIVA1TAB4 PO (09:47)
--- NOTE | 2016-08-09 09:50 | Discharge Instructions ---
Discharge Instructions Date of Service Aug 09, 2016. Admission Reason for Admission: Dvt, Pneumonia, Pulmonary Embolism Discharge Discharge Diagnosis / Problem: 1. Pneumonia (Community acquired/Bilateral) 2. Left pulm embolism 3. DVT Discharge Goals Goal(s): Improve disease control, Therapeutic intervention, Prevent Disease Progression Activity Recommendations Activity Limitations: resume your previous activity . Instructions / Follow-Up Instructions / Follow-Up MEDICATION CHANGES: 1. New medication: Xarelto 15 mg PO BID with meals x 21 days followed by 20 mg daily 2. New medication: Levofloxacin 750 mg PO daily x 5 more days to complete course of 7 days of antibiotics 3. Discontinue Tamoxifen due to new Pulmonary embolism/DVT diagnosis 4. Discontinue prednisone FOLLOW UP 1. Follow up with Dr Morgan 08/11/16 at 1:10 PM 2. Follow up with Dr Manish Rodriguez (Hem/Onc) in 1-2 weeks. Call for appointment as discussed MONITOR 1. Need non emergent US thyroid for a thyroid nodule detected co incidently on CT scan Current Hospital Diet Patient's current hospital diet: Regular Diet Discharge Diet Recommended Diet: Regular Diet Pending Studies Studies pending at discharge: no Medical Emergencies . Who to Call and When: Medical Emergencies: If at any time you feel your situation is an emergency, please call 911 immediately. . Non-Emergent Contact Non-Emergency issues call your: Primary Care Provider . . "Provider Documentation" section prepared by Ashley Rodriguez. VTE Core Measure Inpt VTE Proph given/why not?: Enoxaparin (Lovenox)SQ
--- NOTE | 2016-08-09 09:53 | Discharge Summary ---
Discharge Summary Date of Service Aug 09, 2016. Discharge Summary Admission Date: Aug 07, 2016 at 19:30 Discharge Date: Aug 09, 2016 Discharge Disposition: Home Principal Diagnosis: 1. Pneumonia (Bilateral/Community Acquired) 2. Left Pulmonary Embolism 3. Left DVT- Popliteal Vein 4. Thyroid Nodule- Co incidental finding Secondary Diagnoses/Problems: 1. Hx of Breast carcinoma 2. Varicose veins with recent sclerotherapy Procedures: CT scan chest CXR Venous duplex Lovenox SQ- therapeutic Consultations: None Pending Studies/Follow-Up: Instructions / Follow-Up Instructions / Follow-Up MEDICATION CHANGES: 1. New medication: Xarelto 15 mg PO BID with meals x 21 days followed by 20 mg daily 2. New medication: Levofloxacin 750 mg PO daily x 5 more days to complete course of 7 days of antibiotics 3. Discontinue Tamoxifen due to new Pulmonary embolism/DVT diagnosis 4. Discontinue prednisone FOLLOW UP 1. Follow up with Dr Morgan 08/11/16 at 1:10 PM 2. Follow up with Dr Manish Rodriguez (Hem/Onc) in 1-2 weeks. Call for appointment as discussed MONITOR 1. Need non emergent US thyroid for a thyroid nodule detected co incidently on CT scan 2. BMP to be done during next office appt - K, Creatinine monitoring Medication Reconciliation New Medications: Rivaroxaban (Xarelto) 20 Mg Tab 20 MG PO DAILY for 30 Days, #30 TAB 2 Refills Levofloxacin (Levofloxacin) 750 Mg Tab 750 MG PO DAILY@1900 for 5 Days, #5 TAB Rivaroxaban (Xarelto) 15 Mg Tab 15 MG PO BID for 21 Days, #42 TAB Continued Medications: Albuterol Sulf (Albuterol Sulfate) 2.5 Mg/0.5 Ml Nebu 0.5 ML PO Q4 PRN for Shortness of Breath Timolol Hemihydrate 0.25% Oph (Betimol 0.25% Oph) 0.25 % [place] 1 DROP OPR DAILY, BTL Discontinued Medications: Cephalexin Monohydrate (Keflex) 500 Mg Cap 500 MG PO TID, #15 CAP Prednisone (Prednisone Tab) 20 Mg Tab 20 MG PO DIRECTED, TAB Tamoxifen Citrate (Tamoxifen Citrate) 20 Mg Tab 20 MG PO DAILY Admission Information HPI (per Admitting provider): 71 YO female followed by Dr. Morgan for Family Medicine. Followed by Dr. Manish Rodriguez for Hematology / Oncology. Retired respiratory therapist. History of breast Ca, on tamoxifen. Developed fever, chills, cough about 2 weeks ago. Seen in clinic on 08/01. Chest x-ray showed possible RML infiltrate. Treated with doxycycline and prednisone taper. Persistent cough. Seen in clinic for f/u 08/06 and prescribed cephalexin. Using nebs at home without much benefit. Presented to ED today with severe left sided pleuritic chest pain. Cough improved, now nonproductive. No hemoptysis. Dyspneic. Fever has resolved. Had sclerotherapy of lower extremities for varicose veins about 2 weeks ago. . Physical Exam (per Admitting): General Appearance: WD/WN, no apparent distress Head: normocephalic, atraumatic Eyes: normal inspection, PERRL, EOMI, sclerae normal ENT: normal ENT inspection, hearing grossly normal, pharynx normal Neck: supple, no adenopathy, thyroid normal, no JVD, trachea midline Respiratory/Chest: no respiratory distress, + crackles (left base), + wheezing (mild) Cardiovascular: regular rate, rhythm, no gallop, no JVD, no murmur, normal peripheral pulses, + pertinent finding (trace edema LLE) Abdomen/GI: normal bowel sounds, non tender, soft, no organomegaly, no pulsatile mass Extremities/Musculoskelatal: normal inspection, no calf tenderness, normal capillary refill, no pedal edema Neurologic/Psych: recovery coordinator II-XII nml as tested (PERRL, EOMI, no dysarthria, no facial palsy), no motor/sensory deficits, alert, oriented x 3 Skin: normal color, warm/dry, no rash Lymphatic: no adenopathy Hospital Course SOB/LEFT PLEURITIC PAIN: Improved Multifactorial: Pneumonia (Bilateral/Community acquired) / Left Pulmonary embolism -Not hypoxic PNEUMONIA (B/L/Community acquired) - Clinically improving Failed outpatient Rx with Doxycycline (5 days) --> Cefalexin and prednisone x 5 days -Afebrile, Leucocytosis -IV Levofloxacin (Day 2)--> Okay to change to PO Levofloxacin to complete 7 days of rx. PULMONARY EMBOLISM, LEFT SIDED/ ACUTE DVT - LEFT POPLITEAL VEIN CT scan - Segmental and subsegmental branches of the left upper lobe pulmonary artery. Venous duplex- Left popliteal vein thrombosis Risk factors: Tamoxifen with hx of breast cancer, in remission. Sclerotherapy can rarely cause DVT , so most likely Tamoxifen is the culprit. -Lovenox SQ BID started on admission---> Transition to Xarelto today. First dose at 6 PM prior to discharge -Discussed with Dr Manish Rodriguez over phone - Recommends discontinuation of Tamoxifen and Xarelto for Rx. 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 Gave options of Coumadin/Xarelto to patient. Does not want coumadin due to need for frequent INR testing. Explained risks of Xarelto- bleeding risk and no antidote available. Understands and wants to go with Xarelto. Covered by insurance with copay of $ 33-acceptable to patient HYPOKALEMIA/ALFONZO -Mild bump in creatinine- 1.4 from 1.2 yesterday, K 3.4 -Encouraged PO fluids and will give some IVF prior to discharge today -Recommend repeat BMP during next office visit. Xarelto dose after 21 days 15 mg vs 20 mg to be decided according to creatinine clearance per PCP. THYROID NODULE 11 mm right thyroid nodule noted on CT chest. Outpatient US recommended. Patient aware. HX OF BREAST CARCINOMA -In remission -Tamoxifen- discontinue due to new PE/DVT -Discussed case with Dr Manish Rodriguez -Follow up in 1-2 weeks DISPOSITION Ok to discharge home today after first dose of xarelto at 6:00 PM Total time spent on discharge = 32 minutes This includes examination of the patient, discharge planning, medication reconciliation, and communication with other providers. Discharge Instructions Activity Recommendations Activity Limitations: resume your previous activity . Instructions / Follow-Up Instructions / Follow-Up MEDICATION CHANGES: 1. New medication: Xarelto 15 mg PO BID with meals x 21 days followed by 20 mg daily 2. New medication: Levofloxacin 750 mg PO daily x 5 more days to complete course of 7 days of antibiotics 3. Discontinue Tamoxifen due to new Pulmonary embolism/DVT diagnosis 4. Discontinue prednisone FOLLOW UP 1. Follow up with Dr Morgan 08/11/16 at 1:10 PM 2. Follow up with Dr Manish Rodriguez (Hem/Onc) in 1-2 weeks. Call for appointment as discussed MONITOR 1. Need non emergent US thyroid for a thyroid nodule detected co incidently on CT scan Current Hospital Diet Patient's current hospital diet: Regular Diet Discharge Diet Recommended Diet: Regular Diet Pending Studies Studies pending at discharge: no Medical Emergencies . Who to Call and When: Medical Emergencies: If at any time you feel your situation is an emergency, please call 911 immediately. . Non-Emergent Contact Non-Emergency issues call your: Primary Care Provider . . "Provider Documentation" section prepared by Ashley Rodriguez. VTE Core Measure Inpt VTE Proph given/why not?: Enoxaparin (Lovenox)SQ
[2016-08-09 10:35] LABS: MEAN CELL VOLUME 95.6 fL (80-100); MEAN CORPUSCULAR HEMOGLOBIN 31.4 pg (25-34); MEAN CORPUSCULAR HGB CONC 32.8 g/dl (32-36); PLATELET COUNT 249 K/uL (130-400); RED BLOOD COUNT 4.08 M/uL (4.2-5.4); WHITE BLOOD COUNT 10.76 K/uL (4.8-10.8)
[2016-08-09 11:01] LABS: BUN/CREATININE RATIO 14.5 (10-20); CALCIUM 8.4 mg/dl (8.5-10.1); CREATININE 1.4 mg/dl (0.60-1.20); POTASSIUM 3.4 mmol/L (3.5-5.1)
[2016-08-09 11:11] LABS: THYROID STIMULATING HORMONE 2.17 uIu/ml (0.300-4.500)
[2016-08-09] MEDS ORDERED: POTASSIUM CHLORIDE 10 MEQ TABCR PO STA (11:55)
[2016-08-09] MEDS ORDERED: SODIUM CHLORIDE 0.9% 1000ML 1,000 ML IV SCH (12:00)
[2016-08-09] MEDS ORDERED: IPRATROPIUM BROMIDE/ALBUTEROL respimat INH INH SCH (13:00)
[2016-08-09] MEDS: LEVOFLOXACIN 750 MG TAB PO SCH (17:11)
[2016-08-09] MEDS ORDERED: RIVAROXABAN TAB 15 MG TAB PO SCH (18:00)
== END 2016-08-09 18:00 | disposition home or self-care (01) | DRG 175 ==
LOC: ENRESERVTM → ENRESERVDT → C.EDB 13:30 → C.MS2W 19:30
PROVIDERS: ADMIT Hospitalist; ATTEND Internal Medicine
DX: I26.99 Other pulmonary embolism without acute cor pulmonale (principal); J18.9 Pneumonia, unspecified organism; I82.432 Acute embolism and thrombosis of left popliteal vein; N17.9 Acute kidney failure, unspecified; N18.3 Chronic kidney disease, stage 3 (moderate); Z80.3 Family history of malignant neoplasm of breast; C50.919 Malignant neoplasm of unspecified site of unspecified female breast; E04.1 Nontoxic single thyroid nodule; E87.6 Hypokalemia; Z98.890 Other specified postprocedural states

== ENCOUNTER → 2017-02-16 | Outpatient (CLI) | payer OTHER ==
[~2017-02-16] MED LIST changes: -ASPCH81X PO; +LVQ750 PO; +PRVIN525 PO; +RIVA1TAB4 PO; +XRL15 PO
--- NOTE | 2017-02-16 15:30 | MAMMOGRAPHY REPORT ---
BILATERAL DIGITAL SCREENING MAMMOGRAM WITH CAD: 02/16/2017 CLINICAL HISTORY: Routine screening. Patient has no complaints. TECHNIQUE: Bilateral CC and MLO views were obtained. Current study was also evaluated with a Comput er Aided Detection (CAD) system. COMPARISON: Comparison is made to exams dated: 02/14/2016 mammogram, 02/12/2015 mammogram, 08/02/2014 m ammogram, 11/16/2013 mammogram, 11/07/2012 mammogram, and 11/06/2011 mammogram - [facility] nter. BREAST COMPOSITION: There are scattered areas of fibroglandular density in both breasts. FINDINGS: The parenchymal pattern is similar to prior mammograms. There are a few scattered benign- appearing calcifications bilaterally. No developing mass, architectural distortion or cluster of capo picious microcalcifications is seen in either breast. IMPRESSION: ACR BI-RADS CATEGORY 2: BENIGN There is no mammographic evidence of malignancy. A 1 year screening mammogram is recommended. The pa tient will receive written notification of the results. Approximately 10% of breast cancers are not detected with mammography. A negative mammographic report should not delay biopsy if a clinically suggestive mass is present. Debra Mathur M.D. ay/:02/16/2017 15:18:58 Woolen Tester: Barbara GUTIÉRREZ(Toñito)(Yandel)([place]), [facility] letter sent: Normal 1/2 BI-RADS Code: ACR BI-RADS Category 2: Benign
== END | disposition home or self-care (01) ==
LOC: C.MAMM 09:32
PROVIDERS: ATTEND Family Medicine
DX: Z12.31 Encounter for screening mammogram for malignant neoplasm of breast (principal)